=== PATIENT | male | born 1975 | race Caucasian/White ===

== ENCOUNTER 2018-10-10 12:26 | Emergency (ER) | payer BC, OTHER ==
--- NOTE | 2018-10-10 12:51 | EDM.PDOC ---
ED HPI GENERAL MEDICAL PROBLEM - General Chief Complaint: Respiratory Problem Stated Complaint: RESPIRATORY ISSUES Time Seen by Provider: 10/10/18 12:38 Source of Information: Reports: Patient, RN Notes Reviewed History Limitations: Reports: No Limitations - History of Present Illness INITIAL COMMENTS - FREE TEXT/NARRATIVE: Patient is a 42-year-old male who presents to the ED for the evaluation of chest tightness. The patient notes that this is been going on for around 6 months. He has chest tightness mostly in his mid chest and throat area, feelings of not being able to take air in like normal, where he has to take deeper type sigh breaths. 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 He denies any asthma or pulmonary issues. He states he has a history of GERD for which he takes omeprazole, he was diagnosed with GERD 5 years ago started omeprazole and then made dietary changes. Since stopped taking the omeprazole. Since these feelings have been present, starting 6 months ago. He notes that the feelings are worse in the morning, and get better afternoon. He has been taking his omeprazole for one month again as he felt it was GERD related. He states he has a problem with anxiety, but is not being treated for this. He denies any dyspnea with exertion, lightheadedness/ dizziness, heart palpitations, chest pain. This is more of just a discomfort. He feels as if there is always a lump in his throat that will not clear. He further notes that he has had an increase in the amount of stress in his life. Upper Chest Pain Score (Numeric/FACES): 2 - Related Data Allergies Allergy/AdvReac Type Severity Reaction Status Date / Time divalproex sodium Allergy Other Verified 10/10/18 12:42 [From Depakote] Home Meds: Home Meds Albuterol Sulfate [Proventil Hfa] 1 puff INH ASDIRECTED 10/10/18 [History] LORazepam [Ativan] 0.5 mg PO TID PRN #21 tablet 10/10/18 [Rx] Omeprazole Magnesium [Prilosec] 0 mg PO DAILY 10/10/18 [History] Past Medical History Gastrointestinal History: Reports: GERD, Other (See Below) Other Gastrointestinal History: endoscopy Social & Family History - Tobacco Use Smoking Status *Q: Former Smoker Years of Tobacco use: 15 Used Tobacco, but Quit: Yes Month/Year Tobacco Last Used: 1 week ago - Caffeine Use Caffeine Use: Reports: None, Soda - Recreational Drug Use Recreational Drug Use: No ED ROS GENERAL - Review of Systems Review Of Systems: See Below Constitutional: Denies: Fever, Chills, Malaise, Weakness, Decreased Appetite HEENT: Reports: No Symptoms Respiratory: Denies: Wheezing, Cough, Sputum Cardiovascular: Reports: Chest Pain (mid chest discomfort/tightness). Denies: Edema, Lightheadedness, Orthopnea, Palpitations, PND Endocrine: Reports: No Symptoms GI/Abdominal: Reports: No Symptoms : Reports: No Symptoms Musculoskeletal: Reports: No Symptoms Skin: Reports: No Symptoms Neurological: Reports: No Symptoms ED EXAM, GENERAL - Physical Exam Exam: See Below Exam Limited By: No Limitations General Appearance: Alert, WD/WN, No Apparent Distress Eye Exam: Bilateral Eye: EOMI, Normal Inspection, PERRL Ears: Normal External Exam Nose: Normal Inspection Throat/Mouth: Normal Inspection, Normal Lips, Normal Teeth, Normal Gums, Normal Voice Head: Atraumatic, Normocephalic Neck: Normal Inspection, Supple, Non-Tender, Full Range of Motion Respiratory/Chest: No Respiratory Distress, Lungs Clear, Normal Breath Sounds, No Accessory Muscle Use, Chest Non-Tender Cardiovascular: Normal Peripheral Pulses, Regular Rate, Rhythm, No Edema, No Murmur Peripheral Pulses: 3+: Radial (L), Radial (R) GI/Abdominal: Normal Bowel Sounds, Soft, Non-Tender, No Distention, No Mass Extremities: Normal Inspection, Normal Capillary Refill Neurological: Alert, Oriented, Normal Cognition, Normal Gait, No Motor/Sensory Deficits Psychiatric: Normal Affect, Normal Mood, Anxious (pt seems to talk a lot on initial exam) Skin Exam: Warm, Dry, Intact, Normal Color, No Rash Course - Vital Signs Last Recorded V/S: Last Vital Signs Temp 97.9 F 10/10/18 12:37 Pulse 96 10/10/18 12:37 Resp 20 10/10/18 12:37 BP 166/95 H 10/10/18 12:37 Pulse Ox 98 10/10/18 12:37 - Orders/Labs/Meds Meds: Medications Discontinued Medications Generic Name Dose Route Start Last Admin Trade Name Emma PRN Reason Stop Dose Admin Lorazepam 0.5 mg 10/10/18 13:04 10/10/18 13:17 Ativan PO 10/10/18 13:05 0.5 mg ONETIME ONE Administration - Re-Assessments/Exams Free Text/Narrative Re-Assessment/Exam: 10/10/18 13:11 Patient presents to the ED for the evaluation of respiratory illness or/chest discomfort. Have ordered 0.5 mg PO Ativan for initial management as I suspect this might be due to anxiety in nature. During his initial history and exam, the patient does talk quite a bit, and does try to fill the silent pauses with chatter. The patient does not have a primary care provider, I did recommend that he set up with a primary care provider for long-term health management. He is understanding of this. Will reassess his situation after the Ativan has been given. 10/10/18 13:44 Patient was reassessed at bedside, he states that the Ativan did help the feelings of discomfort in his chest, will provide the patient with a few tablets of Ativan and recommend that he set up care with a primary care provider. Departure - Departure Time of Disposition: 13:48 Disposition: Home, Self-Care 01 Condition: Fair Clinical Impression: Anxiety, Chest pain due to GERD - Discharge Information *PRESCRIPTION DRUG MONITORING PROGRAM REVIEWED*: No *COPY OF PRESCRIPTION DRUG MONITORING REPORT IN PATIENT AKSHAT: No Instructions: Generalized Anxiety Disorder, Adult, Food Choices for Gastroesophageal Reflux Disease, Adult, [id number] Referrals: PCP,None [Primary Care Provider] - Forms: ED Department Discharge Additional Instructions: You have been evaluated in the ED today for your chest discomfort. You were given a dose of Ativan, and this did seem to help alleviate your symptoms, which is suggestive that this is more of an anxiety issue. You have been provided with a prescription for Ativan, 0.5 mg TID PRN. This has been electronically sent to the clinic pharmacy [facility]. Please take this medication as directed for the next week or so and follow up with a primary care provider of your choosing. [facility] number is [phone]. Any family practice provider would be able to provide you with services. Please take your omeprazole daily as previously directed, to manage or GERD. You have been provided with dietary guidelines to help alleviate GERD symptoms as well. Please return to the ED if your symptoms should change or worsen.
[2018-10-10] MEDS ORDERED: LORazepam 0.5 MG Tab PO ONE (13:04)
== END 2018-10-10 14:00 | disposition home or self-care (01) ==
LOC: JD.ED 12:26
DX: K21.9 Gastro-esophageal reflux disease without esophagitis (principal); F41.9 Anxiety disorder, unspecified; Z88.8 Allergy status to other drugs, medicaments and biological substances; Z79.899 Other long term (current) drug therapy; Z87.891 Personal history of nicotine dependence
CPT/HCPCS: 99283; A9270; 99284